=== PATIENT | male | born 1985 | race Native Hawaiian/Other Pacific Islander ===

== ENCOUNTER 2020-03-06 12:30 | Emergency (ER) | payer SELFPAY ==
--- NOTE | 2020-03-06 13:37 | XRay Report ---
RIGHT WRIST 3 VIEWS 1307 INDICATION: crush injury, pain COMPARISON: None available. FINDINGS: Ulnar styloid is which appears old. No dislocation is seen. Lucency is seen in th e distal carpal row ventrally in the area of the trapezium on the lateral projection only. Possibly t his is artifact but I cannot exclude a nondisplaced fracture in this area. Clinical attention is niesha curry. Signer Name: Devaughn Hodgson MD Signed: 03/06/2020 1:33 PM Workstation Name: [id number]
[2020-03-06] MEDS ORDERED: HYDROcodone/ACETAMINOPHEN 5-325 MG TAB PO STA (15:18)
--- NOTE | 2020-03-06 16:00 | Emergency Department Report ---
Upper Extremity - [facility] Chief Complaint: Extremity Injury, Upper Stated Complaint: RT HAND INJURY Time Seen by Provider: 03/06/20 13:57 Upper Extremity: Right Wrist Occurred When: Today Severity: mild, moderate Symptoms: Yes Pain with Movement, Yes Limited Range of Movement, Yes Swelling, Yes Bruising/Ecchymosis, No Deformity, No Numbness, No Weakness, No Laceration or Abrasion ED Review of Systems ROS: Stated complaint: RT HAND INJURY Other details as noted in HPI ED Past Medical Hx - Past Medical History Hx Hypertension: Yes - Surgical History Past Surgical History?: No - Social History Smoking Status: Never Smoker Substance Use Type: Alcohol - Medications Home Medications: Home Medications Medication Instructions Recorded Confirmed Last Taken Type Acetaminophen/Codeine [Tylenol 1 tab PO Q6H PRN #14 tab 03/06/20 Unknown Rx /Codeine # 3 tab] Upper Extremity Exam - Exam General: Vital signs noted. No distress. Alert and acting appropriately. ED Course Vital Signs 03/06/20 03/06/20 12:36 15:30 Temperature 98.6 F Pulse Rate 111 H Respiratory 18 18 Rate Blood Pressure 194/124 O2 Sat by Pulse 98 Oximetry Critical care attestation.: If time is entered above; I have spent that time in minutes in the direct care of this critically ill patient, excluding procedure time. ED Disposition Clinical Impression: Wrist fracture, right Disposition: DC- TO HOME OR SELFCARE Is pt being admited?: No Does the pt Need Aspirin: No Condition: Stable Instructions: Wrist Fracture in Adults (ED) Prescriptions: Acetaminophen/Codeine [Tylenol /Codeine # 3 tab] 1 tab PO Q6H PRN #14 tab PRN Reason: Pain , Severe (7-10) Referrals: DIEGO NAIR MD [Primary Care Provider] - 3-5 Days [facility] [Provider Group] - 3-5 Days HA WALKER MD [Staff Physician] - 3-5 Days
[2020-03-06 17:22] VITALS: BP 148/70
== END 2020-03-06 16:20 | disposition home or self-care (01) ==
LOC: ED 12:30
DX: S62.101A Fracture of unspecified carpal bone, right wrist, initial encounter for closed fracture (principal); I10 Essential (primary) hypertension; Z79.899 Other long term (current) drug therapy; X58.XXXA Exposure to other specified factors, initial encounter; Y93.89 Activity, other specified; Y92.89 Other specified places as the place of occurrence of the external cause; Y99.8 Other external cause status
CPT/HCPCS: 99283